=== PATIENT | male | born 2000 | race Caucasian/White ===

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

== ENCOUNTER 2020-11-24 15:34 | Outpatient (CLI) | payer OTHER ==
--- NOTE | 2020-11-24 18:05 | SLEEP CARE CONSULTATION ---
Information from patient questionnaire entered by Sri Cardona. I have reviewed and concur with the information entered by Sri Cardona. This document represents the service I personally performed and the decisions made by me, Brendan Ward MD, [facility]. History of Present Illness Service Date and Time: 11/24/2020 1534 Previous diagnosis: Very Severe, Obstructive Sleep Apnea-Hypopnea Syndrome AHI: 64.3 Reason for follow up: annual (last seen 11/2018) Equipment type: CPAP Equipment obtained from: [facility] Prior sleep studies: Yes HPI additional information: HPI: Mr. Nayak was diagnosed to have very severe (AHI 64.3) obstructive sleep apnea-hypopnea syndrome in March 2017 and returned today for his annual follow up. He tried CPAP for a short while then had a maxillo-mandibular advancement surgery in July of 2019. He reports significant improvement afterward. He rarely snores now. He would like to confirm the resolution. Subjective Initial [place] Sleepiness Scale score: 4 (in 2017) Current [place] Sleepiness Scale score: 4 Allergies and Home Medications Drug allergies reviewed: Yes Home medication list reviewed: Yes Review of Systems Review of systems same as previous: Yes Physical Exam Height: 6 ft Weight: 195 lb Body Mass Index: 26.4 BMI Classification: Overweight Impression and Plan IMPRESSION: 1. Obstructive Sleep Apnea-Hypopnea Syndrome, very severe treated with MMA. The surgery appears to be effective according to the patient. A home sleep apnea test (HSAT) will be performed to reevaluate the condition. The patient also has lost some weight. PLAN: 1. Order a home sleep apnea test (HSAT). 2. Return for follow up after the test. Visit Type: In Office Provider Statement: I spent 100% of the Face to Face Visit with the patient with greater than 50% spent counseling the patient and coordination of care.
== END 2020-11-24 15:35 | disposition home or self-care (01) ==
LOC: SC 15:34
PROVIDERS: ATTEND Internal Medicine Pulmonary Disease
DX: G47.33 Obstructive sleep apnea (adult) (pediatric) (principal); E66.3 Overweight; Z68.26 Body mass index [BMI] 26.0-26.9, adult
CPT/HCPCS: 99212

== ENCOUNTER 2020-12-02 14:58 | Outpatient (CLI) | payer OTHER | END 2020-12-02 14:59 | disposition home or self-care (01) | LOC: SC 14:58 | PROVIDERS: ATTEND Internal Medicine Pulmonary Disease | DX: G47.33 Obstructive sleep apnea (adult) (pediatric) (principal) | CPT/HCPCS: 95806 ==

== ENCOUNTER 2021-01-02 09:07 | Outpatient (CLI) | payer OTHER ==
--- NOTE | 2021-01-02 09:27 | SLEEP CARE CONSULTATION ---
Information from patient questionnaire entered by Sri Cardona. I have reviewed and concur with the information entered by Sri Cardona. This document represents the service I personally performed and the decisions made by , Carolyn Miranda ARNP. History of Present Illness Service Date and Time: 01/02/2021906 Initial [place] Sleepiness Scale score: 4 (in 2017) Current [place] Sleepiness Scale score: 4 Additional HPI information: PHONG GALEAS returns for follow up and results of the recently performed home sleep study. The patient was informed of the following findings: no significant sleep disordered breathing with an average AHI of 4.7 and ray oxygen saturation of 90%. His supine AHI was elevated at 6.4. I explained the pathophysiology behind obstructive sleep apnea. Patient does not have sleep apnea and was advised how weight gain could increase the risk of developing sleep apnea in the future. I strongly encouraged the patient to lose weight. Patient does not have significant sleep disordered breathing but has elevated AHI in supine position so advised positional therapy. Methods to achieve positional management therapy were discussed; such as, positioning with pillows, wearing a T-shirt with tennis balls sewn into the back, [place] shirt, Zzomba belt and Slumberbump belt. Patient has mild snoring. Snoring can be reduced by weight loss. Weight loss is best achieved with diet consult. Patient instructed to contact PCP for referral. Snoring can also be treated with an oral appliance from a dentist. Advised to check insurance coverage. In addition, an ENT evaluation can be do to see if other treatment is indicated. Patient does not drink alcohol. Patient was cautioned about risks of drowsy driving until sleepiness symptoms resolve. Sleep Study - Results Type of Sleep Study: Home sleep study Prior sleep studies: Yes (Poly) Year and Where: 2017 - [facility] Sleep Polysomnography/Home Sleep Study results: Physician Impression: The quality of the study is good. The length of the study is adequate (> 240 minutes). Please also see the tabulated and graphic data. 1. No significant sleep disordered breathing, with an AHI of 4.7/hr and ray SaO2 of 90%. During the study, the patient had 23 apneas (23 obstructive, 0 central, 0 mixed) and 7 hypopneas. The longest episode lasted 53.5 seconds. The few respiratory events occurred more frequently during supine sleep (supine AHI was 6.4 and non-supine, 2.53). Allergies and Home Medications Home medication list reviewed: Yes (no changes) Review of Systems Review of systems same as previous: Yes (no changes) Physical Exam Heart Rate: 75 O2 Saturation: 98 Height: 6 ft Weight: 193 lb Body Mass Index: 26.2 BMI Classification: Overweight Impression and Plan Snoring but no significant sleep disordered breathing. Patient does have mildly elevated supine AHI and was advised to avoid supine sleep. He has been on a CPAP in the past but does not need to restart CPAP use since surgery. Patient advised that often weight loss will reduce snoring as well as apnea risk. An oral appliance can also be used for snoring. This would require a dental consultation. Patient cautioned not to use other online appliances as can cause bite issues. A list of accredited dentists in [facility] and one local dentist who makes oral appliances is available in the office. Patient is advised to check if insurance will cover. An ENT consult can also be helpful to determine if any other treatment is an option. * Attempt to lose weight * Avoid supine sleep because of mildly elevated supine AHI * Avoid alcohol consumption near bedtime * The patient is cautioned about driving until sleepiness is completely resol su. * Return as needed for follow up. Counseling Topics: Weight loss health impact Visit Type: In Office Time Spent with Patient (minutes): 14 Provider Statement: I spent 100% of the Face to Face Visit with the patient with greater than 50% spent counseling the patient and coordination of care.
== END 2021-01-02 09:08 | disposition home or self-care (01) ==
LOC: SC 09:07
PROVIDERS: ATTEND Nurse Practitioner Family
DX: G47.33 Obstructive sleep apnea (adult) (pediatric) (principal)
CPT/HCPCS: 99212

== ENCOUNTER 2021-07-27 08:00 | Outpatient (CLI) | payer OTHER | END 2021-07-27 23:59 | LOC: LAB.N 08:00 | PROVIDERS: ATTEND Family Medicine | DX: R05.3 Chronic cough (principal); Z20.822 Contact with and (suspected) exposure to COVID-19 | CPT/HCPCS: 87275; 87276 ==

== ENCOUNTER 2022-06-25 11:32 | Outpatient (CLI) | payer BC ==
--- NOTE | 2022-06-25 16:41 | Ultrasound Report ---
PROCEDURE: Testicle INDICATIONS: VARICOCELE TECHNIQUE: Real-time scanning was performed of the scrotum and testicles, with image documentation. Color and p ulse Doppler interrogation was performed of both testicles. COMPARISON: None. FINDINGS: Right: Testicle is normal in size at 4.5 x 2.6 x 2.3 cm, and homogenous in echotexture. Epididymis is normal in overall size and morphology. Small varicocele. Overlying scrotal skin is normal in thick ness. Left: Testicle is normal in size at 4.3 x 3.0 x 2.2 cm, and homogeneous in echotexture. There is an appearance of an epididymal head cyst measuring 2.2 x 2.1 x 1.4 mm. Mild varicocele. Overlying scrota l skin is normal in thickness. Doppler: Color and pulse Doppler demonstrate normal and symmetric arterial flow in both testicles. IMPRESSION: Bilateral varicoceles. Left epididymal head cyst. Reviewed by: Claudia Mejia MD on 06/25/2022 4:40 PM PST Approved by: Claudia Mejia MD on 06/25/2022 4:40 PM PST Station ID: [id number]
== END 2022-06-25 11:33 | disposition home or self-care (01) ==
LOC: DI 11:32
PROVIDERS: ATTEND Internal Medicine
DX: I86.1 Scrotal varices (principal); N50.3 Cyst of epididymis